=== PATIENT | female | born 1975 | race Caucasian/White ===

== ENCOUNTER 2022-08-27 19:30 | Outpatient (CLI) | payer BC | END 2022-08-27 19:31 | disposition home or self-care (01) | LOC: SLEEPLAB 19:30 | PROVIDERS: ATTEND Student in an Organized Health Care Education/Training Program | DX: G47.33 Obstructive sleep apnea (adult) (pediatric) (principal); E66.9 Obesity, unspecified; Z68.41 Body mass index [BMI] 40.0-44.9, adult; R06.83 Snoring | CPT/HCPCS: 95810 ==

== ENCOUNTER 2022-10-26 19:00 | Outpatient (CLI) | payer BC | END 2022-10-26 19:01 | disposition home or self-care (01) | LOC: SLEEPLAB 19:00 | PROVIDERS: ATTEND Student in an Organized Health Care Education/Training Program | DX: G47.33 Obstructive sleep apnea (adult) (pediatric) (principal); E66.9 Obesity, unspecified; R06.83 Snoring | CPT/HCPCS: 95811 ==

== ENCOUNTER 2023-05-25 10:39 | Outpatient (CLI) | payer BC | END 2023-05-25 10:40 | disposition home or self-care (01) | LOC: EKG 10:39 | PROVIDERS: ATTEND Student in an Organized Health Care Education/Training Program | DX: R07.89 Other chest pain (principal); E11.65 Type 2 diabetes mellitus with hyperglycemia | CPT/HCPCS: 93005; 93010; 93017 ==